=== PATIENT | female | born 1975 | race Caucasian/White ===

== ENCOUNTER 2021-06-23 16:19 | Emergency (ER) | payer BC ==
[2021-06-25 13:38] LABS: SARS-CoV-2 PCR by NAA DETECTED (NotDetected)
== END 2021-06-23 17:15 | disposition home or self-care (01) ==
LOC: MADERS 16:19
DX: U07.1 COVID-19 (principal); F17.210 Nicotine dependence, cigarettes, uncomplicated
CPT/HCPCS: 99283; U0003; U0005